=== PATIENT | female | born 1940 | race Caucasian/White ===

== ENCOUNTER 2019-12-25 15:24 | Inpatient (IN) | payer MEDICARE, OTHER ==
[~2019-12-25 15:24] MED LIST: Lidocaine 1% PF 5 ML VIAL ONE; PROPOFOL 200 MG/20 ML VIAL ONE
[2019-12-25] MEDS ORDERED: Morphine 2 MG/ML VIAL ONE ×2 (15:33→16:52)
[2019-12-25] MEDS ORDERED: Ondansetron PF 4 MG/2 ML Vial ONE ×2 (15:36→17:11)
--- NOTE | 2019-12-25 16:46 | RAD ---
EXAM: RIGHT KNEE TWO VIEWs: 12/25/19 HISTORY: Injury from a fall. FINDINGS: Mild bone demineralization. No acute fracture or dislocation. Very mild degenerative and osteoarthro sis change. IMPRESSION: Unremarkable right knee. No significant acute process. No fracture or dislocation. POS: RRE
--- NOTE | 2019-12-25 16:48 | RAD ---
AP PELVIS: 12/25/19 HISTORY: Patient fell. Bones appear slightly demineralized. The pelvic ring is intact. There is a subcapital fracture of the right femoral neck which appears to represent an incomplete fracture. Some buckling to the lateral c ortex. Left hip appears unremarkable. IMPRESSION: Subcapital fracture of the right femoral neck with some buckling to the lateral cortex of the femoral neck of the right hip. POS: NANCY
--- NOTE | 2019-12-25 16:49 | RAD ---
EXAM: RIGHT HIP TWO VIEWS: 12/25/19 HISTORY: Injury from a fall with pain. FINDINGS: There is evidence for a minimally impacted subcapital right femoral neck fracture with very mild valg us change. There is some bone demineralization. The pelvis appears intact. IMPRESSION: Minimally impacted subcapital right femoral neck fracture with slight valgus deformity. POS: RRE
[2019-12-25 16:52] LABS: #Eosinphils 0.1 thou/uL (0.0-0.7); #Lymphocytes 0.5 thou/uL (1.20-3.40); #Monocytes 0.7 thou/uL (0.11-0.59); #Neutrophils 8.9 thou/uL (1.40-6.50); %Basophils 0.1 % (0.0-1.0); %Eosinophils 0.5 % (0.0-10.0); %Lymphocytes 4.9 % (21.0-51.0); %Monocytes 6.6 % (0.0-10.0); %Neutrophils 87.9 % (42.0-75.0); Hemoglobin 13.3 g/dL (12.0-16.0); Mean Corpuscular HGB CONC 33.6 g/dL (32.0-36.0); Mean Corpuscular Hemoglobin 30.2 pg (27.0-31.0); Mean Platelet Volume 8.7 fL (7.4-10.4); Platelet Count 243 thou/uL (130-400); RBC Distribution Width 12.3 % (11.5-14.5); White Blood Cell (WBC) Count 10.1 thou/uL (4.8-10.8)
--- NOTE | 2019-12-25 17:03 | RAD ---
Chest one view HISTORY: Fall. Injury. FINDINGS: No comparison. Cardiac silhouette is magnified by projection.. Pulmonary vasculature are un remarkable. Mediastinum is midline allowing for rightward convex curvature of the thoracic spine. Small amount of convex lucency along the right upper lateral chest wall at the level of the right sec ond rib has the appearance of a small pneumothorax. No rib fracture visible. No lobar consolidation. IMPRESSION : Possible tiny right apical pneumothorax. Please consider upright PA views of the chest in inspiration and expiration for additional evaluation . Short-term radiographic follow-up will likely also be appropriate.
[2019-12-25] MEDS ORDERED: Famotidine/PF 20 mg/2ml Vial ONE (17:18)
[2019-12-25 17:20] LABS: ALT (SGPT) 13 U/L (8-55); AST (SGOT) 21 U/L (5-34); Albumin 3.7 g/dL (3.4-4.8); Alkaline Phosphatase 87 U/L (40-110); Anion Gap 13 mmol/L (10-20); BUN (Urea Nitrogen) 16 mg/dL (9.8-20.1); Bilirubin, Total 0.4 mg/dL (0.2-1.2); Calc. Creatinine Clearance 0 mL/min (70-130); Calcium 9.3 mg/dL (7.8-10.44); Carbon Dioxide 26 mmol/L (23-31); Chloride 105 mmol/L (98-107); Estimated GFR-MDRD 77; Globulin 3.1 g/dL (2.4-3.5); Glucose 105 mg/dL (83-110); Magnesium 1.9 mg/dL (1.6-2.6); Phosphorus 3.1 mg/dL (2.3-4.7); Potassium 3.6 mmol/L (3.5-5.1); Protein, Total 6.8 g/dL (6.0-8.3); Sodium 140 mmol/L (136-145)
[2019-12-25] MEDS ORDERED: Dextrose 50% Abboject 50 ML SYRINGE SLOW IVP PRN (17:31)
[2019-12-25] MEDS ORDERED: Ondansetron PF 4 MG/2 ML Vial IVP PRN ×2 (17:31→20:44)
[2019-12-25] MEDS ORDERED: Morphine 4 MG/ML VIAL SLOW IVP PRN (17:31)
[2019-12-25] MEDS ORDERED: Dextrose 5% in Water 1,000 ML IV PRN (17:31)
[2019-12-25] MEDS ORDERED: traMADol HCl 50 MG TAB PO PRN ×2 (17:35)
[2019-12-25] MEDS ORDERED: Cyclobenzaprine 10 MG TAB PO PRN (17:35)
[2019-12-25] MEDS ORDERED: Calcium Carbonate 500 MG ChewTAB PO PRN (17:35)
[2019-12-25 17:51] LABS: Bilirubin Negative (Negative); Blood, Urine Negative (Negative); Clarity Clear (Clear); Glucose, Urine (Dipstick) Normal (Negative); Ketone, Urine Negative (Negative); Leukocyte 75 Leu/uL (Negative); Nitrite 2+ (Negative); Protein, Urine (Dipstick) Negative (Neg-Trace); RBC/HPF 0-3 HPF (0-3); Specific Gravity, Urine 1.008 (1.002-1.036); Squamous Epithelial None Seen HPF (0-3); Urobilinogen Normal mg/dL (Less than 2); pH, Urine 6.5 (5.0-9.0)
[2019-12-25 17:54] LABS: Bacteria/HPF 1+ HPF (None Seen)
--- NOTE | 2019-12-25 18:21 | HP ---
TRAUMA SURGEON: Dr. Leblanc. CONSULTING PHYSICIAN: Dr. Saavedra. HISTORY OF PRESENT ILLNESS: The patient is a 79-year-old female, who presented to the emergency department via EMS after mechanical fall outside. The patient stepped into a hole and fell forward. She denies hitting her head or loss of consciousness. Denies anticoagulation use. She was not able to ambulate afterwards. She was placed into a wheelchair and then brought to the emergency department course, where she was found to have a right femoral neck fracture. Chest x-ray also demonstrated a possible right apical pneumothorax, which was very tiny. The patient had no complaints of any respiratory issues. She did state that she had right-sided hip and groin pain. Denies chest pain, shortness of breath, or numbness and tingling in her bilateral upper and lower extremities. During my evaluation, the patient started to complain of indigestion and belch several times. She complains of significant epigastric pain. It was mildly tender on palpation. She reports that since she had her gallbladder removed a couple of years ago that she has intermittent indigestion that is resolved by Tums. REVIEW OF SYSTEMS: All additional 10-point review of systems negative except as indicated above. PAST MEDICAL HISTORY: Hypertension. SURGICAL HISTORY: Total hysterectomy, left wrist carpal tunnel release, cholecystectomy. SOCIAL HISTORY: The patient lives at home with her son and . She does not use any assistive devices to get around. She denies tobacco, drug, or alcohol use. MEDICATIONS: The patient takes antihypertensive, but she is unsure of the medication. She uses [facility] in [place], [place] as her pharmacy. ALLERGIES: NO KNOWN DRUG ALLERGIES. PHYSICAL EXAMINATION: VITAL SIGNS: Temperature is not documented in the chart, pulse 74, respirations 18, oxygen saturation 99% on room air, blood pressure 162/61. PRIMARY SURVEY: Airway intact. Adequate breath sounds bilaterally. 2+ pulses in bilateral radials, femorals, and DPs. GCS 15. Gross motor and sensation, intact. No signs of laceration, bruising, or external bleeding. SECONDARY SURVEY: HEAD: Normocephalic and atraumatic. No skull deformities. EYES: Equal, round, reactive to light bilaterally. ENT: No signs of trauma. C-SPINE: No step-offs, deformities, or tenderness to palpation of thoracic or lumbar spine. C-collar not in place. CHEST: Nontender. No crepitus. No abrasions or ecchymosis noted. Equal chest movement. ABDOMEN: Soft, nondistended, minimal tenderness to the epigastric region. PELVIS: Stable to palpation, nontender. No abrasions or ecchymosis noted. RECTAL: Deferred. GENITOURINARY: Deferred. EXTREMITIES: No gross deformities. Right-sided hip and groin tenderness. No abrasions or ecchymosis noted. 2+ pulses in bilateral radials, femorals, and DPs. BACK/SPINE: No step-offs or deformities or tenderness to palpation of thoracic or lumbar spine. No abrasions or ecchymosis noted. NEUROLOGIC: 5/5 strength in bilateral security alarm technician, plantar flexion, dorsiflexion. Gross normal sensation x4 extremities. LABORATORY FINDINGS: White count 10.1, hemoglobin 13.3, hematocrit 39.6, platelets 243. Sodium 140, potassium 3.6, chloride 105, bicarb 26, BUN 16, creatinine 0.73, glucose 105, phosphorus 3.1, magnesium 1.9. DIAGNOSTIC FINDINGS: X-ray of the right hip demonstrates minimally impacted subcapital right femoral neck fracture with slightly valgus deformity. X-ray of the right knee demonstrates unremarkable right knee. No significant acute process. No fracture dislocation. X-ray of the pelvis demonstrates subcapital fracture of the right femoral neck with some buckling of the lateral cortex of the femoral neck of the right hip. Chest x-ray demonstrates possible tiny right apical pneumothorax. Please consider upright AP views of the chest in inspiration and expiration for additional evaluation. Short-term radiographic followup will likely also be appropriate. ASSESSMENT: 1. Status post mechanical fall from standing. 2. Possible small right apical pneumothorax. 3. Right femoral neck fracture. 4. History of hypertension. PLAN: The patient will be admitted to the Trauma Service. Dr. Saavedra of Orthopedic Surgery will evaluate the patient and plan to take her to the OR this evening. She is n.p.o. at midnight. She will receive p.o. and IV pain medications as needed. Postoperatively, she will have a regular diet. We will restart her home medications as clinically indicated. Tomorrow, she will work with Physical and Occupational Therapy and likely need discharge to acute rehab facility. We will repeat AP and lateral chest x-ray tomorrow to further evaluate the pneumothorax unless she becomes symptomatic. This patient was discussed with Dr. Leblanc before this dictation. Job ID: [id number] MTDD
[2019-12-25] MEDS ORDERED: Neomycin-Polymyxin 1 ML AMP ONE (19:13)
[2019-12-25] MEDS ORDERED: Ondansetron HCl/PF 4 MG/2 ML Vial IVP PRN (19:49)
[2019-12-25] MEDS ORDERED: PHOS-NAK 1 PKT PACK PO SCH (20:15)
[2019-12-25] MEDS ORDERED: Potassium Chloride 20 MEQ TAB PO SCH (20:15)
[2019-12-25] MEDS ORDERED: Cepastat Lozenges 1 LOZ PO PRN (20:44)
[2019-12-25] MEDS ORDERED: Ondansetron ODT 4 MG TAB PO PRN (20:44)
[2019-12-25] MEDS ORDERED: Fleet Enema 133 ML BOT PR PRN (20:44)
[2019-12-25] MEDS ORDERED: Milk Of Magnesia 30 ML UDCUP PO PRN (20:44)
[2019-12-25] MEDS ORDERED: Bisacodyl 10 MG SUPP PR PRN (20:44)
[2019-12-25] MEDS ORDERED: Senokot S 8.6-50 MG TAB PO SCH (21:00)
[2019-12-25] MEDS ORDERED: Fentanyl 100 MCG/2 ML VIAL ONE (21:21)
[2019-12-25] MEDS ORDERED: Acetaminophen 500 MG TAB PO SCH ×2 (22:00→23:59)
--- NOTE | 2019-12-25 22:46 | PRG ---
DATE OF SERVICE: 12/25/2019 SUBJECTIVE: The patient was seen during evening rounds, just returning from the operating room, currently in the post anesthesia care unit. The patient is postop repair of her right femoral neck fracture. The patient had a mechanical fall earlier today. The patient is currently awake, alert, in no distress. The patient denies any pain at this time. The patient was also found to have a right tiny pneumothorax. The patient denies any chest pain or shortness of breath. OBJECTIVE: VITAL SIGNS: Stable, afebrile. GENERAL: Well-appearing elderly female, awake, alert, in no distress. RESPIRATORY: Good inspiratory and expiratory effort. EXTREMITIES: Moves all extremities, neurovascularly intact x4. LABORATORY DATA: No new laboratory data to review. ASSESSMENT: 1. Status post mechanical fall from standing. 2. Possible small right apical pneumothorax, stable. 3. Right femoral neck fracture, status post repair. 4. History of hypertension. PLAN: Supportive care and pain management. Regular diet as tolerated. PT and OT to evaluate and treat tomorrow. Repeat labs and a chest x-ray in the morning. Job ID: [id number]
[2019-12-25] MEDS: Senokot S 8.6-50 MG TAB PO SCH (22:56)
[2019-12-25] MEDS: Famotidine/PF 20 mg/2ml Vial SLOW IVP SCH (22:58)
[2019-12-25] MEDS: Ferrous Gluconate 324 MG TAB PO SCH (22:58)
[2019-12-25] MEDS: Cipro 250 MG TAB PO SCH (22:58)
[2019-12-25] MEDS: Ibuprofen 200 MG TAB PO SCH (22:58)
[2019-12-25] MEDS: CEFAZOLIN 2 GM in Premix Bag 1 BAG IVPB SCH (22:59)
--- NOTE | 2019-12-25 23:01 | RAD ---
XR Hip Rt 2-3 View History: Hip fracture Comparison: Radiograph same day Findings: Interval fixation of the right femoral neck fracture with 2 partially threaded cannulated s crews. Impression: Satisfactory postoperative appearance.
[2019-12-25] MEDS: Ketorolac Tromethamine 30 MG/ML VIAL IVP SCH (23:37)
[2019-12-26 00:20] VITALS: BMI 21.2
--- NOTE | 2019-12-26 01:37 | OP ---
DATE OF PROCEDURE: 12/25/2019 PREOPERATIVE DIAGNOSIS: Impacted femoral neck fracture of the right hip. POSTOPERATIVE DIAGNOSIS: Impacted femoral neck fracture of the right hip. PROCEDURE: Multiple cannulated screws of impacted femoral neck fracture of the right hip. ANESTHESIA: General. DESCRIPTION OF PROCEDURE: The patient was given preoperative IV antibiotics, taken to the operating room, placed in the supine position. Satisfactory general anesthesia was performed. The patient was then placed in the fracture table. No traction was applied to the right lower extremity. C-arm verified. The patient continued to have impacted femoral neck fracture. Lateral aspect of the right hip was sterilely prepped and draped in usual fashion. A 2 cm incision was made on the lateral aspect of the right hip and through fluoroscopic visualization, a guide pin was placed up through the lateral aspect of the hip through the femoral neck across the fracture and into the femoral head. The pins were verified as being in good position with the C-arm with fluoroscopy in the AP, lateral, and multiple oblique views. The appropriate length screws were measured. The lateral cortex was over-reamed, and a 75-mm cannulated 7.3 screw that had 32 mm threads were inserted and the other screw was 80 mm. This was all performed under fluoroscopic visualization. It showed good position of the pins with good stability of the fracture and proper placement of the screws. Guide pins were removed. The wound was irrigated with antibiotic solution and closed using 2-0 Vicryl for the deep tissue and skin was closed with 3-0 Rapide. Sterile dressing was applied. The patient was awakened, extubated, and transferred to recovery room in stable condition. ESTIMATED BLOOD LOSS: Minimal. COMPLICATIONS: None. Job ID: [id number]
[2019-12-26 05:31] LABS: #Eosinphils 0.1 thou/uL (0.0-0.7); #Lymphocytes 0.7 thou/uL (1.20-3.40); #Monocytes 0.5 thou/uL (0.11-0.59); #Neutrophils 5.9 thou/uL (1.40-6.50); %Basophils 0.1 % (0.0-1.0); %Eosinophils 1.7 % (0.0-10.0); %Lymphocytes 9.7 % (21.0-51.0); %Monocytes 7.2 % (0.0-10.0); %Neutrophils 81.4 % (42.0-75.0); Hemoglobin 12.3 g/dL (12.0-16.0); Mean Corpuscular HGB CONC 33.3 g/dL (32.0-36.0); Mean Corpuscular Hemoglobin 30.4 pg (27.0-31.0); Mean Corpuscular Volume 91.2 fL (78.0-98.0); Mean Platelet Volume 8.7 fL (7.4-10.4); Platelet Count 213 thou/uL (130-400); RBC Distribution Width 12.2 % (11.5-14.5); Red Blood Cell (RBC) Count 4.04 mill/uL (4.20-5.40); White Blood Cell (WBC) Count 7.3 thou/uL (4.8-10.8)
[2019-12-26 05:54] LABS: Anion Gap 13 mmol/L (10-20); BUN (Urea Nitrogen) 10 mg/dL (9.8-20.1); Calc. Creatinine Clearance 59 mL/min (70-130); Calcium 8.6 mg/dL (7.8-10.44); Carbon Dioxide 26 mmol/L (23-31); Chloride 107 mmol/L (98-107); Estimated GFR-MDRD 81; Glucose 104 mg/dL (83-110); Phosphorus 4.2 mg/dL (2.3-4.7); Potassium 4.5 mmol/L (3.5-5.1); Sodium 141 mmol/L (136-145)
[2019-12-26] MEDS: CEFAZOLIN 2 GM in Premix Bag 1 BAG IVPB SCH (05:55)
[2019-12-26] MEDS: Ketorolac Tromethamine 30 MG/ML VIAL IVP SCH ×3 (05:57→18:17)
[2019-12-26] MEDS: Ibuprofen 200 MG TAB PO SCH (05:57)
[2019-12-26] MEDS: Acetaminophen 500 MG TAB PO SCH ×3 (05:57→18:16)
[2019-12-26] MEDS: Cipro 250 MG TAB PO SCH ×2 (05:57→20:38)
[2019-12-26] MEDS: Multivitamin W/ Minerals 1 TAB PO SCH (08:04)
[2019-12-26] MEDS: Famotidine/PF 20 mg/2ml Vial SLOW IVP SCH ×2 (08:04→20:39)
[2019-12-26] MEDS: Ferrous Gluconate 324 MG TAB PO SCH ×2 (08:04→20:39)
[2019-12-26] MEDS: Polyethylene Glycol 3350 17 GM Packet PO SCH (08:06)
[2019-12-26] MEDS: Senokot S 8.6-50 MG TAB PO SCH ×2 (08:06→20:39)
[2019-12-26] MEDS ORDERED: FLU VACC QS2020-21(65YR UP)/PF 240 MCG/0.7 ML SYRINGE IM ONE (09:00)
[2019-12-26] MEDS: Amlodipine 5 MG TAB PO SCH (10:32)
[2019-12-26] MEDS: Aspirin 81 mg Enteric Coated Tablet PO SCH ×2 (10:32→20:38)
--- NOTE | 2019-12-26 11:46 | RAD ---
Chest one view HISTORY: Follow-up. Possible pneumothorax. COMPARISON: 12/25/2019. FINDINGS: Cardiac silhouette is magnified by projection. Pulmonary vasculature is unremarkable. Mediastinum is midline allowing for rightward convex curvature of the thoracic spine. There is calcif ication in the aorta. Lungs are well-inflated. No pneumothorax today's exam. IMPRESSION : No evidence of pneumothorax. Atherosclerosis.
--- NOTE | 2019-12-26 13:14 | PRG ---
DATE OF SERVICE: 12/26/2019 SUBJECTIVE: Ms. Ashton underwent multiple cannulated screws of impacted femoral neck fracture of the right hip yesterday. The patient states that she is doing well. She has good pain control. She was able to work with physical therapy earlier today. OBJECTIVE: VITAL SIGNS: The patient has been afebrile. Blood pressure 118/68, respiratory rate 16, pulse 59, and O2 saturation 96% on room air. EXTREMITIES: The right lower extremity is neurovascularly intact. LABORATORY DATA: This morning, her white count was 7.3, hemoglobin 12.3, and hematocrit 36.9. PLAN: The patient will continue to work with physical therapy. Her plan post hospitalization is to return home and continue to improve with outpatient physical therapy. The patient lives in [facility] just [place] of [place], and she plans on going back home there and doing physical therapy there. Job ID: [id number]
--- NOTE | 2019-12-26 16:47 | PRG ---
DATE OF SERVICE: 12/26/2019 SUBJECTIVE: The patient was seen this morning during rounds. She was sitting up in bed with no signs of acute distress. She reported her pain is well controlled and she worked with Physical Therapy earlier today. She is tolerating her diet. Reports sleeping well overnight. OBJECTIVE: VITAL SIGNS: Temperature 98.3, pulse 59, respirations 16, oxygen saturation 96% on room air, and blood pressure 118/68. GENERAL: Well-appearing elderly female, sitting up in bed with no signs of acute distress. PULMONARY: Equal chest rise and fall. Clear breath sounds bilaterally. No signs of acute respiratory distress. CARDIAC: Regular rate and rhythm. GI: Abdomen is soft, nontender, and nondistended. EXTREMITIES: 2+ pulses in all extremities. Gross motor and sensations intact. No significant swelling noted. NEUROLOGIC: GCS is 15. LABORATORY FINDINGS: White count 7.3, hemoglobin 12.3, hematocrit 36.9, and platelets 213. Sodium 141, potassium 4.5, chloride 107, bicarb 26, BUN 10, creatinine 0.70, and glucose 104. Phosphorus 4.2. Magnesium 2.0. DIAGNOSTIC FINDINGS: Chest x-ray completed this morning demonstrates no evidence of pneumothorax. ASSESSMENT: 1. Status post mechanical fall from standing. 2. Possible right apical pneumothorax, resolved. 3. Right femoral neck fracture, status post repair. 4. Urinary tract infection, uncomplicated. 5. History of hypertension. PLAN: Continue current diet and pain regimen. Continue antibiotics. Restart home medications as indicated. Aspirin 81 mg b.i.d. for DVT prophylaxis. No additional chest x-ray needed. The patient to work with Physical Therapy one additional day and we will ask Case Management to evaluate their report for possible placement at acute rehab facility versus discharge home. The patient may be able to be discharged home with home PT. Job ID: [id number]
--- NOTE | 2019-12-26 23:29 | PRG ---
DATE OF SERVICE: 12/26/2019 SUBJECTIVE: The patient was seen during evening rounds, sleeping in no distress. The patient's pain has been well controlled. The patient continues to tolerate her diet. OBJECTIVE: VITAL SIGNS: Stable, afebrile. PLAN: Unchanged. Continue current diet and pain regimen. Continue antibiotics for urinary tract infection. Continue physical and occupational therapy. Job ID: [id number]
[2019-12-27] MEDS: Ketorolac Tromethamine 30 MG/ML VIAL IVP SCH ×2 (00:38→06:46)
[2019-12-27] MEDS: Acetaminophen 500 MG TAB PO SCH ×2 (00:38→06:45)
[2019-12-27] MEDS: Cipro 250 MG TAB PO SCH (06:45)
[2019-12-27] MEDS: Senokot S 8.6-50 MG TAB PO SCH (07:45)
[2019-12-27] MEDS: Aspirin 81 mg Enteric Coated Tablet PO SCH (07:45)
[2019-12-27] MEDS: Amlodipine 5 MG TAB PO SCH (07:46)
[2019-12-27] MEDS: Ferrous Gluconate 324 MG TAB PO SCH (07:46)
[2019-12-27] MEDS: Multivitamin W/ Minerals 1 TAB PO SCH (07:46)
[2019-12-27] MEDS: Polyethylene Glycol 3350 17 GM Packet PO SCH (07:47)
[2019-12-27] MEDS ORDERED: Citalopram 20 MG TAB PO SCH (09:00)
[2019-12-27 11:37] VITALS: BP 129/57; TEMP 97.3
[2019-12-27] MEDS ORDERED: Ibuprofen 200 MG TAB PO SCH (14:00)
--- NOTE | 2019-12-27 19:32 | PRG ---
DATE OF SERVICE: 12/27/2019 Ms. Ashton states that she has very little pain in the right hip. She is doing well. She was able to make a full circuit with physical therapy, walking in the hallway this morning. The patient has been afebrile. Last vital signs showed pulse 57, respiratory rate 14, O2 saturation 100% on room air, and blood pressure 129/57. Right lower extremity is neurovascularly intact. The patient is doing extremely well with her right hip, probably can be discharged very soon, possibly today and if Trauma team needs to evaluate anything else. She lives [place] of [place] and is planning on going to physical therapy and probably final orthopedic surgeon up in that area for followup. Job ID: [id number]
--- NOTE | 2019-12-28 03:08 | DIS ---
DATE OF ADMISSION: 12/25/2019 DATE OF DISCHARGE: 12/27/2019 CONSULTING PHYSICIAN: Dr. Saavedra of Orthopedic Surgery. PROCEDURES: The patient went to the OR on December 25, 2019, had multiple cannulated screw of impacted femoral neck fracture of the right hip. HOSPITAL COURSE: The patient is a 79-year-old female, presented to the emergency department for a mechanical fall after she stepped into a hole and fell forward. Patient was found to have a right femoral neck fracture and a possible right apical pneumothorax. She was later found to have a urinary tract infection. She was admitted to the Trauma Service and Dr. Saavedra of Orthopedic Surgery evaluated her and took her to the OR the same day of arrival. Postoperatively, she worked with Physical and Occupational Therapy who deemed that she was appropriate for discharge home with outpatient physical therapy. Her urinary tract infection was treated with Cipro for 3 days. The last two days, she was given a prescription for Cipro. Her possible right apical pneumothorax resolved on review of the chest x-ray the next day. The patient was ultimately discharged home to the care of her family. She lives in the [facility] and was agreeable to outpatient physical therapy and discharged with a walker. DISCHARGE DISPOSITION: Home. DISCHARGE CONDITION: Satisfactory. PHYSICAL EXAMINATION: VITAL SIGNS: Temperature 97.8, pulse 51, respirations 18, oxygen saturation 96% on room air, and blood pressure 141/79. GENERAL: Well-appearing elderly female, sitting up in bed with no signs of acute distress. PULMONARY: Equal chest rise and fall. Clear breath sounds bilaterally. No signs of acute respiratory distress. CARDIAC: Regular rate and rhythm. GASTROINTESTINAL: Soft, nontender, and nondistended. EXTREMITIES: 2+ pulses all extremities. Gross motor and sensation intact. No significant swelling noted. NEUROLOGIC: GCS is 15. DISCHARGE INSTRUCTIONS: The patient was discharged home. Activity: As tolerated. Weightbearing as top as tolerated. Diet: Regular diet. Physical therapy in outpatient setting. Incentive spirometry and a walker. DISCHARGE MEDICATIONS: Include; 1. Tylenol. 2. Amlodipine. 3. Cipro for a total of two more tablets. 4. Citalopram. 5. Ibuprofen. 6. MiraLAX. 7. Tramadol. FOLLOWUP APPOINTMENTS: Patient is to follow up with Dr. Saavedra in clinic. No need for followup with Trauma Clinic. This is merely a summary of the patient's hospitalization. For full details, please see her medical record in its entirety. The patient was seen and evaluated on the day of discharge. The [employer] Prescription Monitoring Program was accessed and the patient did not have any history of concerning medications. She was discharged home on medications used to control her pain while inpatient. The patient was seen and evaluated by myself on the day of discharge. Job ID: [id number]
--- NOTE | 2019-12-29 04:42 | PQF ---
CLINICAL DOCUMENTATION CLARIFICATION FORM: Dear : Saiv Tavares Date / Time: 12/29/19441 Please exercise your independent, professional judgment in responding to the clarification form. Clinical indicators are provided on the bottom of this form for your review In your clinical opinion based on clinical findings below, can you please specify type of Pneumothorax if : Please check appropriate box(es): [ X ] Traumatic Pneumothorax [ ] Spontaneous Pneumothorax [ ] Other diagnosis,please specify: [ ] Unable to determine Physician Signature: Date/Time: For continuity of documentation, please document condition throughout progress notes and discharge summary. Thank You. To be completed by CDI/Coding staff for physician review: Present Clinical Indicators - Signs / Symptoms / Labs Results and Location in Medical Record [X] BP 135/59, pulse 84, Resp 18, Temp 98.2, 96% O2 sat Vital signs 12/24 [X] Chest X-ray: Possible tiny apical pneumothorax Imaging Dr Servin 12/24 [X] Presented after mechanical fall outside H&P p1 12/24 Dr Geronimo [X] Possible right apical pneumothorax, resolved PN p1 Dr Jules Present Risk Factors Results and Location in Medical Record [X] 79 year-old Female H&P p1 12/24 Dr Geronimo [X] HTN H&P p1 12/24 Dr Geronimo [X] Fx of Right femoral neck H&P p2 12/24 Dr Geronimo [X] s/p fall H&P p1 12/24 Dr Geronimo Present Treatments Results and Location in Medical Record [X] Duoneb 3ml neb MAY 25 [X] IV Toradol 15 mg MAY 25 [X] IV Morphine 2 mg oral MAY 25 [X] Oxygen 2L Respiratory panel 12/24 [X] Chest X-ray Imaging Dr Servin 12/24 CDS/Communications Officer Signature: Sherrell Lyonssarah Phone #: ext [phone] Date/Time: 12/29/2019441 This is a permanent part of the Medical Record [facility]
== END 2019-12-27 14:53 | disposition home or self-care (01) | DRG 956 ==
LOC: ERS 15:24 → SJJU 17:31
PROVIDERS: ADMIT Surgery; ATTEND Surgery
PROC: 0QH634Z Insertion of Internal Fixation Device into Right Upper Femur, Percutaneous Approach (ICD-10-PCS; principal; 2019-12-25)
DX: S72.001A Fracture of unspecified part of neck of right femur, initial encounter for closed fracture (principal); S27.0XXA Traumatic pneumothorax, initial encounter; N39.0 Urinary tract infection, site not specified; I10 Essential (primary) hypertension; W18.39XA Other fall on same level, initial encounter; Z90.710 Acquired absence of both cervix and uterus; Z79.899 Other long term (current) drug therapy; Z28.21 Immunization not carried out because of patient refusal
CPT/HCPCS: 36415; 51702; 71045; 71046; 72170; 76000; 80048; 80053; 81003; 81015; 83735; 84100; 85025; 93005; 96374; 96375; 96376; C1713; C1769; G0390; J0690; J1885; J2270; J2405; J2704; J3010; S0028